=== PATIENT | male | born 1985 | race Two or more races ===

== ENCOUNTER 2018-07-05 15:57 | Emergency (ER) | payer MEDICAID, OTHER ==
[~2018-07-05] VITALS: Ht 188 cm; Wt 84.8 kg
[2018-07-05 16:42] LABS: Basophils # (auto) 0 uL; Basophils % (auto) 0.5 % (0.0-2.0); Eosinophils # (auto) 0 uL; Eosinophils % (auto) 0.3 % (0.0-7.0); Hemoglobin 16.1 g/dL (13.5-17.5); Lymphocytes # (auto) 2.2 uL; Lymphocytes % (auto) 24.7 % (10.0-50.0); Mean Corpuscular Hemoglobin 31.5 pg (28.0-32.0); Mean Corpuscular Hgb Conc. 34.2 g/dL (32.0-36.0); Mean Corpuscular Volume 92.1 fL (80.0-100.0); Monocytes # (auto) 0.6 uL; Monocytes % (auto) 6.9 % (0.0-12.0); Neutrophils % (auto) 67.6 % (37.0-80.0); Platelet Count (auto) 318 10^3/uL (140-450); Red Cell Distribution Width 14.4 % (11.8-14.3); White Blood Cell 8.9 10^3/uL (4.4-10.8)
[2018-07-05 17:03] LABS: Alanine Aminotransferase 40 U/L (16-61); Albumin 3.6 g/dL (3.4-5.0); Anion Gap 7 (5-15); Blood Urea Nitrogen 9 mg/dL (7-18); Calcium 8.4 mg/dL (8.5-10.1); Carbon Dioxide 28 mmol/L (21-32); Chloride 101 mmol/L (98-107); Glucose 108 mg/dL (74-106); Potassium 3.3 mmol/L (3.5-5.1); Sodium 136 mmol/L (136-145)
[2018-07-05 17:08] LABS: Alkaline Phosphatase 84 U/L (45-117); Aspartate Aminotransferase 22 U/L (15-37); Bilirubin, Total 0.8 mg/dL (0.2-1.0); GFR African American 140 mL/min; GFR Non-African American 116 mL/min; Total Protein 7.3 g/dL (6.4-8.2)
[2018-07-05 17:33] VITALS: BP 141/79
== END 2018-07-05 17:46 | disposition home or self-care (01) ==
LOC: ER 16:03
DX: F41.9 Anxiety disorder, unspecified (principal)
CPT/HCPCS: 36415; 71046; 80053; 83735; 84484; 85025; 93005; 94761

== ENCOUNTER 2019-05-10 09:38 | Emergency (ER) | payer MEDICAID ==
[~2019-05-10] VITALS: Ht 188 cm; Wt 85.3 kg
[2019-05-10] MEDS ORDERED: SODIUM CHLORIDE 0.9% 1,000 ML IV ONE (10:00)
[2019-05-10 11:01] LABS: Amphetamine Screen, Urine NEGATIVE (NEGATIVE); Barbiturate Scree,Urine NEGATIVE (NEGATIVE); Benzodiazephine Screen, Urine NEGATIVE (NEGATIVE); Cannabinoid Screen, Urine NEGATIVE (NEGATIVE); Cocaine Screen, Urine NEGATIVE (NEGATIVE); Opiate Scree,Urine NEGATIVE (NEGATIVE); Phencyclidine Screen, Urine NEGATIVE (NEGATIVE)
[2019-05-10 18:10] VITALS: BP 134/80
== END 2019-05-10 20:01 | disposition home or self-care (01) ==
LOC: ER 09:38 → EDBD 09:38 → ER 20:01
DX: R45.851 Suicidal ideations (principal); F10.129 Alcohol abuse with intoxication, unspecified; F41.9 Anxiety disorder, unspecified; F32.9 Major depressive disorder, single episode, unspecified; F17.210 Nicotine dependence, cigarettes, uncomplicated
CPT/HCPCS: 36415; 80307; 80320; 94761; 99284; J7030

== ENCOUNTER 2020-02-14 11:44 | Emergency (ER) | payer MEDICAID ==
[~2020-02-14] VITALS: Ht 170.2 cm; Wt 98.4 kg
[2020-02-14] MEDS ORDERED: SODIUM CHLORIDE 0.9% 1,000 ML IVB ONE (11:57)
[2020-02-14] MEDS ORDERED: LORazepam 2MG/ML-1ML VIAL IV ONE (12:00)
[2020-02-14 12:36] LABS: Hematocrit 38.9 % (41.0-53.0); Hemoglobin 13.4 g/dL (13.5-17.5); Mean Corpuscular Hemoglobin 29.8 pg (28.0-32.0); Mean Corpuscular Hgb Conc. 34.4 g/dL (32.0-36.0); Mean Corpuscular Volume 86.7 fL (80.0-100.0); Platelet Count (auto) 170 10^3/uL (140-450); Red Blood Cells 4.49 10^6/uL (4.5-5.90); Red Cell Distribution Width 14.1 % (11.8-14.3); White Blood Cell 5.9 10^3/uL (4.4-10.8)
[2020-02-14 12:41] LABS: Basophils % (manual) 0 (0.0-2.0); Blast Cells 0; Metamyelocytes % 0; Myelocytes % 0; Promyelocytes % 0
[2020-02-14 12:47] LABS: Albumin 3.1 g/dL (3.4-5.0); Calcium 7.6 mg/dL (8.5-10.1); Potassium 3.6 mmol/L (3.5-5.1)
[2020-02-14 12:52] LABS: BUN/Creatinine Ratio 12.9; Bilirubin, Total 0.3 mg/dL (0.2-1.0); Total Protein 8.6 g/dL (6.4-8.2)
[2020-02-14 13:27] LABS: Band Neutrophils % (manual) 3; Eosinophils % (manual) 1 (0-7); Lymphocytes % (manual) 54 (10.0-50.0); Monocytes % (manual) 13 (0-12); Reactive Lymphocytes 1
[2020-02-14 16:15] VITALS: BP 120/74
== END 2020-02-14 18:11 | disposition home or self-care (01) ==
LOC: ER 11:44 → EDBD 11:44 → ER 18:11
DX: R41.82 Altered mental status, unspecified (principal); F10.129 Alcohol abuse with intoxication, unspecified; Y90.8 Blood alcohol level of 240 mg/100 ml or more
CPT/HCPCS: 36415; 80053; 80320; 85007; 85027; 96361; 96374; 99284; J2060; J7030